=== PATIENT | female | born 1955 | race Caucasian/White ===

== ENCOUNTER 2017-05-29 17:04 | Inpatient (IN) | payer BC ==
[~2017-05-29] VITALS: Ht 167.6 cm; Wt 59.0 kg
[2017-05-29 20:41] VITALS: BP 113/70
[2017-05-29] MEDS: LORazepam 2 MG TABLET PO PRN (20:44)
[2017-05-29 20:48] VITALS: BP 128/79
[2017-05-29] MEDS: ZOLPIDEM TARTRATE 10 MG TABLET PO PRN (22:19)
[2017-05-30 08:14] LABS: GLUCOSE, URINE (UA) NEGATIVE (NEGATIVE); KETONES,URINE NEGATIVE (NEGATIVE); LEUKOCYTE ESTERASE ,URINE NEGATIVE (NEGATIVE); OCCULT BLOOD,URINE TRACE (NEGATIVE); PH,URINE 5.5 (5.0-8.0); PROTEIN,URINE NEGATIVE (NEGATIVE)
[2017-05-30 08:17] LABS: BASOPHILS % (AUTO) 0.5 % (0.0-2.0); EOSINOPHILS % (AUTO) 4.5 % (1.0-6.0); HEMATOCRIT 41.5 % (36-46); HEMOGLOBIN 14.4 g/dL (12.0-16.0); LYMPHOCYTES # (AUTO) 1.2 K/uL (1.0-4.8); LYMPHOCYTES % (AUTO) 20.7 % (22.0-44.0); MEAN CORPUSCULAR HEMOGLOBIN 32.3 pg (26.0-34.0); MEAN CORPUSCULAR HGB CONC 34.6 G/dL (31.0-37.0); MEAN CORPUSCULAR VOLUME 93 fL (80-100); MONOCYTES # (AUTO) 0.4 K/uL (0.1-1.0); MONOCYTES % (AUTO) 6.4 % (2.0-9.0); NEUTROPHILS # (AUTO) 3.9 K/uL (1.8-7.7); NEUTROPHILS % (AUTO) 67.9 % (40.0-70.0); PLATELET COUNT (AUTO) 231 K/uL (150-450); RED BLOOD CELL COUNT(AUTO) 4.45 MIL/uL (4.00-5.20); RED CELL DISTRIBUTION WIDTH 12.3 % (11.5-14.5); WHITE BLOOD COUNT (AUTO) 5.8 K/uL (4.5-11.0)
[2017-05-30 08:20] LABS: HEMOGLOBIN A1C 5.4 % (4.5-6.2)
[2017-05-30 08:35] LABS: ALANINE AMINOTRANSFERASE 26 U/L (12-78); ALBUMIN 3.1 g/dL (3.4-5.0); ANION GAP 6 mmol/L (8-16); ASPARTATE AMINOTRANSFERASE 16 U/L (15-37); BILIRUBIN,TOTAL 0.8 mg/dL (0.1-1.0); CALCIUM, TOTAL 8.8 mg/dL (8.8-10.5); CARBON DIOXIDE 30 mmol/L (22-29); CHLORIDE 106 mmol/L (98-107); CHOL/HDL RATIO 2.6 (3.9-5.7); CREATININE 0.92 mg/dL (0.60-1.30); GLOMERULAR FILTR. RATE CALC > 60 mL/min (>60); POTASSIUM 3.7 mmol/L (3.5-5.1); SODIUM SERUM 142 mmol/L (136-145); UREA NITROGEN, BLOOD 24 mg/dL (7-18)
[2017-05-30 08:41] LABS: ADD UA MICROSCOPIC YES; APPEARANCE,URINE HAZY (CLEAR)
[2017-05-30 08:45] LABS: SQUAMOUS EPITHELIAL CELL,UR Moderate /LPF (None Seen); WBC,URINE 0-2 /HPF (0-5)
[2017-05-30 08:58] VITALS: BP 109/67
[2017-05-30] MEDS ORDERED: OLAN10TA3 PO (10:07)
[2017-05-30 16:06] VITALS: BP 112/65
[2017-05-30] MEDS ORDERED: ACETAMINOPHEN 325 MG TABLET PO PRN (17:45)
[2017-05-30] MEDS ORDERED: IBUPROFEN 400 MG TABLET PO PRN (17:45)
[2017-05-30] MEDS: LORazepam 2 MG TABLET PO PRN (18:44)
[2017-05-30] MEDS: OLANZapine 10 MG TABLET PO SCH (20:37)
[2017-05-31 08:25] VITALS: BP 108/67
[2017-05-31 08:57] LABS: CHOL/HDL RATIO 2.6 (3.9-5.7)
[2017-05-31 16:15] VITALS: BP 114/65
[2017-05-31] MEDS: LORazepam 2 MG TABLET PO PRN (20:13)
[2017-05-31] MEDS: OLANZapine 10 MG TABLET PO SCH (20:33)
[2017-05-31] MEDS: ZOLPIDEM TARTRATE 10 MG TABLET PO PRN (21:39)
[2017-06-01 06:20] VITALS: BP 126/88
[2017-06-01 08:19] VITALS: BP 114/60
[2017-06-01 16:09] VITALS: BP 118/69
[2017-06-01] MEDS: OLANZapine 5 MG TABLET PO SCH (20:17)
[2017-06-01] MEDS: ZOLPIDEM TARTRATE 10 MG TABLET PO PRN (20:29)
[2017-06-02 00:01] VITALS: BP 112/74
[2017-06-02] MEDS: LORazepam 2 MG TABLET PO PRN ×2 (00:01→21:23)
[2017-06-02 08:42] VITALS: BP 100/60
[2017-06-02 16:33] VITALS: BP 104/77
[2017-06-02] MEDS: OLANZapine 5 MG TABLET PO SCH (20:45)
[2017-06-02] MEDS ORDERED: MIRTAZAPINE 15 MG TABLET PO SCH (21:00)
[2017-06-03 06:25] VITALS: BP 113/69
[2017-06-03 08:00] VITALS: BP 107/57
[2017-06-03 16:10] VITALS: BP 117/61
[2017-06-03] MEDS: MIRTAZAPINE 30 MG TABLET PO SCH (20:48)
[2017-06-03] MEDS: OLANZapine 10 MG TABLET PO SCH (20:49)
[2017-06-03] MEDS: LORazepam 2 MG TABLET PO PRN (21:33)
[2017-06-04 06:45] VITALS: BP 110/61
[2017-06-04 08:46] VITALS: BP 105/61
[2017-06-04 16:47] VITALS: BP 107/67
[2017-06-04] MEDS ORDERED: BACITRACIN 28.4 GM OINTMENT TP PRN (17:30)
[2017-06-04] MEDS: MIRTAZAPINE 30 MG TABLET PO SCH (21:18)
[2017-06-04] MEDS: OLANZapine 10 MG TABLET PO SCH (21:19)
[2017-06-05] MEDS: LORazepam 2 MG TABLET PO PRN (00:25)
[2017-06-05 01:40] VITALS: BP 119/68
[2017-06-05] MEDS: HALOPERIDOL 5 MG TABLET PO PRN ×3 (01:48→23:18)
[2017-06-05 08:49] VITALS: BP 119/66
[2017-06-05 16:18] VITALS: BP 109/66
[2017-06-05] MEDS: MIRTAZAPINE 30 MG TABLET PO SCH (20:51)
[2017-06-05] MEDS: OLANZapine 10 MG TABLET PO SCH (20:51)
[2017-06-06 02:13] VITALS: BP 108/70
[2017-06-06 08:30] VITALS: BP 101/60
[2017-06-06] MEDS: LORazepam 2 MG TABLET PO PRN (12:18)
[2017-06-06 16:15] VITALS: BP 103/63
[2017-06-06] MEDS: OLANZapine 10 MG TABLET PO SCH (20:36)
[2017-06-06] MEDS: MIRTAZAPINE 30 MG TABLET PO SCH (20:42)
[2017-06-07 03:13] VITALS: BP 117/64
[2017-06-07] MEDS: LORazepam 2 MG TABLET PO PRN (03:14)
[2017-06-07 08:31] VITALS: BP 100/51
[2017-06-07] MEDS ORDERED: OLAN10TA3 PO (14:08)
== END 2017-06-07 16:15 | disposition home or self-care (01) | DRG 885 ==
LOC: B2X 20:30
PROVIDERS: ADMIT Psychiatry & Neurology Psychiatry; ATTEND Psychiatry & Neurology Child & Adolescent Psychiatry
DX: F20.0 Paranoid schizophrenia (principal); E88.09 Other disorders of plasma-protein metabolism, not elsewhere classified; R00.0 Tachycardia, unspecified; Z88.2 Allergy status to sulfonamides; F41.9 Anxiety disorder, unspecified
CPT/HCPCS: 80307; 83036; 84439; 84443; 87081